=== PATIENT | male | born 1980 | race Caucasian/White ===

== ENCOUNTER 2019-07-25 05:30 | Emergency (ER) | payer SELFPAY ==
--- NOTE | 2019-07-25 05:58 | ED Physician Documentation ---
General Adult - HISTORIAN Historian: patient - HPI Stated Complaint: "he is septic" Chief Complaint: General Adult Onset: days ago (3) Timing: still present Severity: mild Further Comments: yes (Per they were seen at several dr office's and two hospitals in the last few days. She reports they have been dealing with ortho due to some pain in the right shoulder and arm. Stating yesterday the left wrist is now swollen and painful. She states the ortho was "working on his pain" he was taking hydrocodone from the ortho. She states the ortho had given med for pain although there was increased pain. Sat they went to [facility] for a work up where they were told he had spesis. He was offered treatment but due to "an issue" so they left and presented to [facility] and they were frustrated with that care due to "they just gave us pain meds" and sent us home. She states they were offered admission for sepsis at [facility] but did not stay (this was on Sat) He has had increasing pain since then so they decided to seek care today. No fever. No nausea. He states the symptom bringing him in today is pain in right shoulder and pain in left wrist and swelling in testicles.) - ROS CONST: recent illness - PAST HX Past History: hypertension Immunizations: UTD - SOCIAL HX Smoking History: non-smoker - FAMILY HX Family History: No - REVIEWED ASSESSMENTS Nursing Assessment Reviewed: Yes Vitals Reviewed: Yes <Toyr Palacios - Last Filed: 07/25/19 06:54> - HPI Timing: other (Pt is a 38 yo male with multiple foci inflammation, R shoulder, L hand & wrist, scrotum. Each of these areas is red, warm, swollen and tender. Pt was seen by several providers at several facilities over the past week but was not treated or left AMA. Pt does not have fever at this time. Pt's wbc 2 days ago was 14, now is 26. Pt is tachycardic on presentation.) - VITAL SIGNS Vital Signs: Vital Signs Temp Pulse Resp BP Pulse Ox 98.6 F 128 H 16 132/91 95 07/25/19 05:37 07/25/19 05:37 07/25/19 05:37 07/25/19 05:37 07/25/19 05:37 <Dhiraj Talley - Last Filed: 07/25/19 08:26> - PAST HX Allergies/Adverse Reactions: Allergies Allergy/AdvReac Type Severity Reaction Status Date / Time No Known Allergies Allergy Verified 07/25/19 06:33 Home Medications: Ambulatory Orders Medication Instructions Recorded HYDROcodone /APAP 5/325 [Martin DIRECTED 07/25/19 5/325] Methylprednisolone [Methylpred Dp] DIRECTED 07/25/19 Metoprolol Succinate [Toprol XL] 50 mg PO DAILY 07/25/19 Progress - Progress Progress: 0655: Report and care turned over to Dr Florencio ZAMORA <Tory Palacios - Last Filed: 07/25/19 06:54> - Progress Progress: NS 1 L IVF x 2 Doxycycline 100 mg po in ER Vancomycin 2 gm IV in ER Blood cx -pending urine cx, urine GC/Chlamydia - pending Tansfer to [facility], Dr. aLl <Dhiraj Talley - Last Filed: 07/25/19 08:26> ED Results Lab/Radiology - Lab Results Lab Results: Lab Results 07/25/19 07/25/19 07/25/19 06:00 06:00 06:00 WBC RBC Hgb Hct MCV MCH MCHC RDW Plt Count Neut % (Auto) Lymph % (Auto) [place] % (Auto) Eos % (Auto) Baso % (Auto) Neut # (Auto) Lymph # (Auto) [place] # (Auto) Eos # (Auto) Baso # (Auto) Seg Neutrophils % Band Neutrophils % Lymphocytes % Monocytes % Reactive Lymphocytes Plt Morphology Comment RBC Morph Comment PT 10.8 Seconds Seconds (8.8-11.9) INR 1.04 (0.80-1.10) APTT 31.3 Seconds Seconds (24.7-37.8) Sodium 135 mmol/L L mmol/L (137-145) Potassium 3.2 mmol/L L mmol/L (3.5-5.1) Chloride 96 mmol/L L mmol/L (98-107) Carbon Dioxide 28 mmol/L mmol/L (22-30) Anion Gap 14.2 BUN 12 mg/dL mg/dL (9-20) Creatinine 0.58 mg/dL L mg/dL (0.66-1.25) Estimated Creat Clear 302 Est GFR ( Amer) > 60 (60 - ) Est GFR (Non-Af Amer) > 60 (60 - ) Glucose 217 mg/dL H mg/dL (74-106) Lactate 2.0 U/L U/L (0.7-2.1) Calcium 8.6 mg/dL mg/dL (8.4-10.2) Total Bilirubin 1.4 mg/dL H mg/dL (0.2-1.3) AST 44 U/L U/L (15-46) ALT 48 U/L U/L (0-50) Alkaline Phosphatase 135 U/L H U/L (38-126) Creatine Kinase 97 U/L U/L (55-170) Total Protein 7.8 g/dL g/dL (6.3-8.2) Albumin 3.6 g/dL g/dL (3.5-5.0) 07/25/19 06:00 WBC 26.00 K/ul H K/ul (4.00-12.00) RBC 4.80 M/ul M/ul (3.90-5.20) Hgb 15.0 g/dL g/dL (12.0-18.0) Hct 43.8 % % (37.0-53.0) MCV 91.0 fl fl (80.0-100.0) MCH 31.3 pg pg (28.0-34.0) MCHC 34.3 g/dL g/dL (30.0-36.0) RDW 12.1 % % (11.3-14.3) Plt Count 202 K/mm3 K/mm3 (130-400) Neut % (Auto) Not Reportable Lymph % (Auto) Not Reportable [place] % (Auto) Not Reportable Eos % (Auto) Not Reportable Baso % (Auto) Not Reportable Neut # (Auto) Not Reportable Lymph # (Auto) Not Reportable [place] # (Auto) Not Reportable Eos # (Auto) Not Reportable Baso # (Auto) Not Reportable Seg Neutrophils % 75 % % (39-79) Band Neutrophils % 12 % % (0-12) Lymphocytes % 9 % L % (16-50) Monocytes % 3 % % (0-11) Reactive Lymphocytes 1 % % (0-5) Plt Morphology Comment Normal (NORMAL) RBC Morph Comment Normal (NORMAL) PT INR APTT Sodium Potassium Chloride Carbon Dioxide Anion Gap BUN Creatinine Estimated Creat Clear Est GFR ( Amer) Est GFR (Non-Af Amer) Glucose Lactate Calcium Total Bilirubin AST ALT Alkaline Phosphatase Creatine Kinase Total Protein Albumin - Orders Orders: ED Orders Category Date Time Status IV Started NOW Care 07/25/19 05:59 Active CHEST 1VIEW [RAD] Stat Exams 07/25/19 Taken BLOOD CULTURE Stat Lab 07/25/19 Ordered CBC/PLATELET/DIFF Routine Lab 07/25/19 06:00 Completed CMP Routine Lab 07/25/19 06:00 Completed CREATINE KINASE Routine Lab 07/25/19 06:00 Completed GC [CHLAMYDIA & GONORRHOEAE] Stat Lab 07/25/19 08:05 Ordered LACTATE Stat Lab 07/25/19 06:00 Completed PT-INR Routine Lab 07/25/19 06:00 Completed PTT Routine Lab 07/25/19 06:00 Completed URINALYSIS Routine Lab 07/25/19 Ordered URINE CULTURE Stat Lab 07/25/19 08:10 Ordered 0.9 % Sodium Chloride [Normal Saline] 1,000 ml Med 07/25/19 06:01 Discontinued IV NOW Doxycycline [Vibramycin] Med 07/25/19 08:06 Once 100 mg PO NOW ONE NORMAL SALINE @ 1000 MLS/HR ( 1000ml BOLUS) Med 07/25/19 07:28 Ordered 0.9 % Sodium Chloride [Normal Saline] 1,000 ml IV Q1H Vancomycin HCl [Vancocin] 2 gm Med 07/25/19 08:08 Ordered 0.9 % Sodium Chloride [Normal Saline] 500 ml IV NOW EKG WITH COMPARISON Stat Ther 07/25/19 Ordered <Dhiraj Talley - Last Filed: 07/25/19 08:26> General Adult Physical Exam - PHYSICAL EXAM GENERAL APPEARANCE: no distress EENT: eye inspection normal, pharynx normal, no signs of dehydration RESPIRATORY: no resp distress, chest non-tender, breath sounds normal CVS: reg rate & rhythm, heart sounds normal ABDOMEN: soft, normal bowel sounds, no distension BACK: normal inspection, no CVA tenderness SKIN: warm/dry, other (swelling in left wrist and testicles with swelling ) EXTREMITIES: non-tender, normal range of motion, no evidence of injury NEURO: oriented X3 <Tory Palacios - Last Filed: 07/25/19 06:54> - PHYSICAL EXAM SKIN: other (increased warmth, swelling, tendeness, R shoulder & L hand/wrist & scrotum/testicles) <Dhiraj Talley - Last Filed: 07/25/19 08:26> Discharge <Tory Palacios - Last Filed: 07/25/19 06:54> Decision to Admit: NO Decision Time: 08:16 <Dhiraj Talley - Last Filed: 07/25/19 08:26> Clincal Impression: sepsis, multiple foci inflammation, R shoulder, L hand, testicular inflammat Referrals: Primary Doctor,No [Primary Care Provider] - Condition: Stable Disposition: XFER [facility]
[2019-07-25] MEDS ORDERED: 0.9 % SODIUM CHLORIDE 1,000 ML IV ONE ×2 (06:01→07:28)
[2019-07-25 06:55] LABS: eGFR (Non-African) > 60
[2019-07-25 07:04] LABS: SEGMENTED NEUTROPHILS % 75 % (39-79)
[2019-07-25] MEDS ORDERED: DOXYCYCLINE 100 MG CAPSULE PO ONE (08:06)
[2019-07-25] MEDS ORDERED: VANCOMYCIN HCL 2 GM in 0.9 % SODIUM CHLORIDE 500 ML IV ONE (08:08)
[2019-07-25 09:00] VITALS: BP 147/72
[2019-07-25 09:19] LABS: APPEARANCE,URINE CLEAR (CLEAR); COLOR,URINE YELLOW (YELLOW); OCCULT BLOOD,URINE 2+ (NEGATIVE); UROBILINOGEN URINE >=8.0 Eu (0.2-1.0)
--- NOTE | 2019-07-26 16:51 | Diagnostic Imaging Report ---
JOSE ROBERTO GALLO [facility] [address] [id number] Report Submission Date: Jul 25, 2019 6:23:15 AM CDT Patient Study Name: RAUL CALLOWAY Date: Jul 25, 2019 5:59:29 AM CDT Modality Type: DX Gender: M Description: CHEST 1VIEW : 82 Institution: [facility] Physician: JOSE ROBERTO GALLO EXAMINATION: CHEST 1VIEW HISTORY: wheezing (Hx) / Note time : 07/25/2019 6:20:35 AM User : Jackie Mejía wheezing (DICOM Hx) (DICOM Hx) COMPARISON: None FINDINGS: There is no focal consolidation, pleural effusion, or pneumothorax. The cardiomediastinal silhouette is normal. The visible bony thorax is intact. IMPRESSION: No acute pulmonary process. Electronically signed on Jul 25, 2019 6:23:15 AM CDT by: Sage BLACK
== END 2019-07-25 08:52 | disposition short-term general hospital (02) ==
LOC: ED 05:30
DX: A41.9 Sepsis, unspecified organism (principal)
CPT/HCPCS: 71045; 80053; 81002; 82550; 83605; 85025; 85610; 85730; 87040; 87086; 87491; 87591; 96360; 96361; 99284; J3370; J7030; J7050; 87186; 93005; S1016

== ENCOUNTER 2019-09-10 07:03 | Emergency (ER) | payer SELFPAY ==
--- NOTE | 2019-09-10 07:20 | ED Physician Documentation ---
General Adult - HISTORIAN Historian: patient - HPI Chief Complaint: General Adult (PICC line check) Additional Information: 38 year old male presents for a PICC line check; patient had a bacterial infection and has been getting IV antibiotics. He had the 1st PICC removed; [facility] but those did not last; had PICC line replaced Monday; he is c/o discomfort to the right upper arm. PICC line flushes; no signs of infection. Onset: hours Timing: still present Severity: mild Modifying Factors: PICC line - ROS CONST: no problems. denies: fever EYES/ENT: none CVS/RESP: none GI/: none MS/SKIN/LYMPH: none - PAST HX Past History: hypertension, other (insomnia, HLD) Surgeries/Procedures: other (orthopedic) Immunizations: UTD Allergies/Adverse Reactions: Allergies Allergy/AdvReac Type Severity Reaction Status Date / Time bee venom protein (honey bee) AdvReac Localized Verified 09/10/19 07:17 Swelling Home Medications: Ambulatory Orders Medication Instructions Recorded HYDROcodone /APAP 5/325 [[place] 1 tab PO Q6H PRN 07/25/19 5/325] Metoprolol Succinate [Toprol XL] 50 mg PO DAILY 07/25/19 Fluconazole [Diflucan] 100 mg PO DAILY 09/10/19 Gabapentin 300 mg PO QID 09/10/19 Heparin Sodium,Porcine/Pf [Heparin 5 ml IV DAILY 09/10/19 100 Unit/10 ml (10/ml)] Hydroxyzine HCl [Atarax] 50 mg PO HS PRN 09/10/19 Ibuprofen 800 mg PO TID 09/10/19 Nystatin Powder [Nystop] 1 applic TOP BID PRN 09/10/19 cefTRIAXone SODIUM [Rocephin] 2 gm IV DAILY 09/10/19 - SOCIAL HX Smoking History: less than 1 pack/day Alcohol Use: none Drug Use: none - FAMILY HX Family History: No - VITAL SIGNS Vital Signs: Vital Signs Temp Pulse Resp BP Pulse Ox 147/72 07/25/19 08:52 - REVIEWED ASSESSMENTS Nursing Assessment Reviewed: Yes Vitals Reviewed: Yes Progress - Progress Progress: 10:30 Contacted [facility]-they will call back. 10:[address] Garzon at the [facility] in ER; discussed DVT on Ultrasound; states those are superficial and no need for concern unless pain or swelling begin; continue with same treatment; patient is to continue Heparin; no further eval. needed ED Results Lab/Radiology - Radiology Radiology Impressions: Exam: Right upper extremity venous Doppler study. History: PICC line in right arm. The examination is compromised as there is bandaging overlying the distal aspect of the cephalic vein and due to discomfort by the patient. The proximal cephalic vein is not compressible. The remaining visualized venous structures are augmentable and compressible. A peripherally inserted catheter is noted to be in position. Impression: The proximal cephalic vein is noncompressible suggestive of deep vein thrombosis. PICC line is noted be in position. Electronically signed on Sep 10, 2019 9:58:39 AM COTTON WEIGHER OPERATOR by: Ruben Be - Orders Orders: ED Orders Category Date Time Status US DUPLEX ARTERIAL UE UNILAT [US] Stat Exams 09/10/19 Ordered Sodium Chloride 0.9 % (Flush) [Normal Saline Flush] Med 09/10/19 07:17 Once 10 ml IV NOW ONE General Adult Physical Exam - PHYSICAL EXAM GENERAL APPEARANCE: no distress EENT: eye inspection normal, ENT inspection normal NECK: normal inspection RESPIRATORY: breath sounds normal CVS: heart sounds normal, equal pulses ABDOMEN: normal bowel sounds SKIN: warm/dry, normal color EXTREMITIES: non-tender, normal range of motion NEURO: oriented X3, motor nml, sensation nml, mood/affect nml, cognition normal Discharge Clincal Impression: PICC (peripherally inserted central catheter) in place, superficial proximal cephalic DVT Referrals: Primary Doctor,No [Primary Care Provider] - 2 Days Additional Instructions: Continue with current treatment with use of PICC line Keep follow up appointment Condition: Good Disposition: 01 HOME, SELF-CARE Decision to Admit: NO Decision Time: 11:08
[2019-09-10] MEDS: SODIUM CHLORIDE 0.9 % (FLUSH) 10 ML DISP.SYRIN IV ONE (07:23)
--- NOTE | 2019-09-10 10:02 | Diagnostic Imaging Report ---
PATIENT MR#: [id number] PATIENT PATIENT NAME: RAUL CALLOWAY DATE OF : 1980 REFERRING PHYSICIAN: Jaclyn Nolan EXAM DATE: 09/10/2019 ACCESSION NUMBER: [id number] EXAM DESCRIPTION: US U OR L EXT VEINS UNILAT CLINICAL HISTORY: PICC LINE INSERTED, PAIN IN RT SHOULDER AREA TECHNIQUE: Duplex ultrasound of the upper extremity veins was performed with grayscale, color flow im aging and Doppler spectral analysis, without and with compression. RIGHT UPPER EXTREMITY VENOUS DUPLEX ULTRASOUND: Exam limited due to patient discomfort and overlying bandage. There is noncompressibility and absence of color flow in the proximal cephalic vein, where the PICC l ine is visualized. The distal cephalic vein was not visualized due to bandage. Normal compressibility of the deep veins of the upper extremity (axillary, basilic and brachial veins ). Normal color flow Doppler within these deep veins (axillary, basilic and brachial veins). Normal color flow Doppl er and venous waveform within the jugular and subclavian veins. IMPRESSION: Findings consistent with DVT of the right cephalic vein, with thrombosis surrounding the PICC line. H owever, the remaining upper extremity veins appear patent and compressible. Read by: Dr. Raul Tian Transcribed by: Raul Tian Transcribed Date: 09/10/2019 10:05:59 AM Electronically signed by: Dr. Raul Tian Date signed: 09/10/2019 10:07:25 AM
[2019-09-10 11:11] VITALS: BP 137/81
== END 2019-09-10 11:02 | disposition home or self-care (01) ==
LOC: ED 07:03
DX: I82.621 Acute embolism and thrombosis of deep veins of right upper extremity (principal); Z95.9 Presence of cardiac and vascular implant and graft, unspecified
CPT/HCPCS: 99282